=== PATIENT | male | born 1990 | race Two or more races ===

== ENCOUNTER 2022-01-30 20:44 | Emergency (ER) | payer MEDICAID, OTHER ==
[~2022-01-30] VITALS: Ht 175.3 cm; Wt 81.6 kg
[2022-01-30] MEDS ORDERED: HYDROcodone-ACET 5/325MG TAB PO ONE (21:45)
[2022-01-31 01:00] VITALS: BP 118/74
[2022-01-31] MEDS ORDERED: HYDROcodone-ACET 5/325MG TAB PO ONE (01:45)
[2022-01-31] MEDS ORDERED: ONDANSETRON ODT 4 MG TAB PO ONE ×2 (01:45)
[2022-01-31] MEDS ORDERED: IBUPROFEN 800 MG TAB PO ONE (02:00)
== END 2022-01-31 02:27 | disposition left against medical advice (07) ==
LOC: ER 20:47
DX: M25.531 Pain in right wrist (principal); Z53.21 Procedure and treatment not carried out due to patient leaving prior to being seen by health care provider
CPT/HCPCS: 73110; 73130; Q0162